=== PATIENT | male | born 1995 | race Caucasian/White ===

== ENCOUNTER 2018-08-13 15:11 | Emergency (ER) | payer OTHER ==
[2018-08-13] MEDS: predniSONE 20 MG TAB PO (17:32)
== END 2018-08-13 18:44 | disposition home or self-care (01) ==
LOC: M ED 15:11
DX: Z77.090 Contact with and (suspected) exposure to asbestos (principal); R00.1 Bradycardia, unspecified; I49.9 Cardiac arrhythmia, unspecified; Z77.098 Contact with and (suspected) exposure to other hazardous, chiefly nonmedicinal, chemicals
CPT/HCPCS: 71046

== ENCOUNTER 2021-10-17 22:14 | Emergency (ER) | payer OTHER ==
[~2021-10-17] VITALS: Ht 170.2 cm; Wt 86.8 kg
[~2021-10-17 22:14] MED LIST: PRED20TA PO
[2021-10-18 00:01] VITALS: BP 156/89
== END 2021-10-18 01:27 | disposition left against medical advice (07) ==
LOC: M ED 22:14
DX: Z53.21 Procedure and treatment not carried out due to patient leaving prior to being seen by health care provider (principal)